=== PATIENT | female | born 1990 | race Caucasian/White ===

== ENCOUNTER 2019-03-27 16:21 | Emergency (ER) | payer OTHER, SELFPAY ==
[2019-03-27 16:21] VITALS: BP 115/79; PULSE 76; RESP 14; TEMP 37.1; O2SAT 97; BMI 20.7
--- NOTE | 2019-03-27 16:53 | ED_ITS ---
HPI - URI/Sore Throat <Driss GuzmánSINDHU graceP - Last Filed: 03/27/19 17:46> General Chief Complaint: Upper Respiratory Symptoms Stated Complaint: thinks she has the flu Time Seen by Provider: 03/27/19 16:30 Source: patient Mode of arrival: Ambulatory Limitations: no limitations History of Present Illness HPI Narrative: This is a 28-year-old female, nonsmoker, who presents to ED with excruciating throat pain since last night. Patient reports it hurts to swallow. Patient is unsure of fever but has mild chills without nausea or vomiting. Patient recently traveled from [facility] via airplane but denies known exposure to illness. Patient also has been having nasal congestion with clear discharge for about 10 days without cough. Patient had not self treated for discomfort at home. Patient is currently on control pill for PCOS and reports no chance for due to low progesterone and is not sexually active at this time since her 's away. Related Data Home Medications Medication Instructions Recorded Confirmed [ CONTROL] #0 04/14/17 mupirocin 1 stevenson TOPICAL TID #0 04/14/17 sulfamethoxazole-trimethoprim 2 tab PO BID #0 04/14/17 Previous Rx's Medication Instructions Recorded cephalexin [Keflex] 500 mg PO Q6H #28 cap 04/14/17 Allergies Allergy/AdvReac Type Severity Reaction Status Date / Time No Known Allergies Allergy Uncoded 07/02/17 12:50 Review of Systems <Driss GuzmánSINDHU graceP - Last Filed: 03/27/19 17:46> Review of Systems Narrative: General: Mild chills. Unsure of fever. Denies fatigue, malaise, sweats. HEENT: Reports severe throat pain since last night and nasal congestion for 10 days. Denies sinus pain, ear pain, difficulty swallowing, dizziness. Respiratory: Denies dyspnea, cough, wheezing, hemoptysis, sputum. Cardiovascular: Denies chest pain, palpitations, orthopnea, edema. Gastrointestinal: Denies nausea, vomiting, abdominal pain, diarrhea, constipa tion, melena. : Denies dysuria, frequency, incontinence, hematuria, urinary retention. Musculoskeletal: Denies weakness, joint pain or bony pain. Skin: Denies rash, skin lesions, or other. Neurologic: Denies weakness, headache, numbness, change in speech, confusion, seizures, incoordination. Psychiatric: No concerning psychosocial issues. 12-point review of systems is negative except for those stated above. Patient History <PEPPER Glaser - Last Filed: 03/27/19 17:46> Surgical History No pertinent past surgical history (Acute) Social History Smoking Status: Never smoker Smoking Status: Never smoker Substance Use Type: does not use Exam <PEPPER Glaser - Last Filed: 03/27/19 17:46> Narrative Exam Narrative: GEN: Alert, oriented x 3, well appearing and nourished, and in no acute distress. Head: Normal cephalic, atraumatic. No scalp or temporal tenderness, palpable mass or rash. EYES: Pupils are equal, round, and reactive to light and accommodation. Extraocular muscles are intact bilaterally. There is no subconjunctival hemorrhage, exudate and sclera non-icteric. ENT: Bilateral auditory canals and tympanic membranes clear. Hearing grossly intact. Nose without bleeding, purulent discharge or deviation. Facial sinuses nontender to palpate. Mucous membrane moist, no mucosal lesion. Throat without erythema, tonsillar hypertrophy or exudate. Uvula in midline and enlarged, airway patent. Neck: Trachea in midline. No JVD, non-tender without lymphadenopathy. No masses or thyroid megaly. Supple, non-tender and no meningeal signs. CARDIAC: Normal regular rate and rhythm without murmurs, gallops, or rubs. No chest wall tenderness. No peripheral edema, cyanosis or pallor. Capillary refill is less than 2 seconds. RESPIRATORY: Lungs are clear to auscultate bilaterally. No cough, wheezes, rales, or rhonchi. No stridor, respiratory distress, increase work of breathing, or accessary muscle used. ABD: Abdomen soft, nontender and non-distended. No guarding or rebound tenderness to palpate. Bowel sounds are normal in all 4 quadrants. There is no palpable masses or organomegaly. EXT: Full painless ROM of all extremities with no loss of sensation, strength, effusion or edema. SKIN: Warm, dry, normal color for patient. No erythema, lesions or rash over visible areas. BACK: Nontender without deformity or crepitance. No flank tenderness. NEUROLOGICAL: Alert and oriented to place, time and person. Sensation and motor function intact bilaterally. No facial droops, dysphasia. PSYCHIATRIC: Good judgement and reason, without hallucinations, abnormal affect or abnormal behaviors during the examination. Initial Vital Signs Initial Vital Signs: Vital Signs Temperature 98.8 F 03/27/19 16:21 Pulse Rate 76 03/27/19 16:21 Respiratory Rate 14 03/27/19 16:21 Blood Pressure 115/79 03/27/19 16:21 Pulse Oximetry 97 03/27/19 16:21 <Digna Kolb DO - Last Filed: 03/27/19 17:49> Initial Vital Signs Initial Vital Signs: Vital Signs Temperature 98.8 F 03/27/19 16:21 Pulse Rate 76 03/27/19 16:21 Respiratory Rate 14 03/27/19 16:21 Blood Pressure 115/79 03/27/19 16:21 Pulse Oximetry 97 03/27/19 16:21 Scores <PEPPER Glaser - Last Filed: 03/27/19 17:46> GCS Nordland coma scale eye opening: Spontaneous Nord[place] coma scale verbal response: Orientated [place] coma scale motor response: Obey commands Ashvin coma scale total score: 15 Citation: Centor score for strep 1 for abscent cough. Course <PEPPER Glaser - Last Filed: 03/27/19 17:46> Orders Ordered: ED Orders 03/27/19 16:40 Throat Culture Stat Discontinued Medications Acetaminophen (Tylenol) 975 mg PO NOW ONE Stop: 03/27/19 16:52 Last Admin: 03/27/19 17:19 Dose: 975 mg Documented by: FRANC Dexamethasone (Decadron) 10 mg PO NOW ONE Stop: 03/27/19 16:52 Last Admin: 03/27/19 17:20 Dose: 10 mg Documented by: FRANC Ibuprofen (Advil) 400 mg PO NOW ONE Stop: 03/27/19 16:52 Last Admin: 03/27/19 17:19 Dose: 400 mg Documented by: FRANC Vital Signs Vital signs: Vital Signs - 8 hr 03/27/19 16:21 03/27/19 17:31 Temperature 98.8 F Pulse Rate 76 88 Respiratory Rate 14 14 Blood Pressure 115/79 Blood Pressure [Right Arm] 103/68 Pulse Oximetry 97 98 <Digna Kolb DO - Last Filed: 03/27/19 17:49> Orders Ordered: ED Orders 03/27/19 16:40 Throat Culture Stat Discontinued Medications Acetaminophen (Tylenol) 975 mg PO NOW ONE Stop: 03/27/19 16:52 Last Admin: 03/27/19 17:19 Dose: 975 mg Documented by: FRANC Dexamethasone (Decadron) 10 mg PO NOW ONE Stop: 03/27/19 16:52 Last Admin: 03/27/19 17:20 Dose: 10 mg Documented by: FRANC Ibuprofen (Advil) 400 mg PO NOW ONE Stop: 03/27/19 16:52 Last Admin: 03/27/19 17:19 Dose: 400 mg Documented by: FRANC Vital Signs Vital signs: Vital Signs - 8 hr 03/27/19 16:21 03/27/19 17:31 Temperature 98.8 F Pulse Rate 76 88 Respiratory Rate 14 14 Blood Pressure 115/79 Blood Pressure [Right Arm] 103/68 Pulse Oximetry 97 98 MDM - URI/Sore Throat <PEPPER Glaser - Last Filed: 03/27/19 17:46> Differential Diagnosis Differential diagnosis: Likely upper respiratory infection and pharyngitis Medical Records Attestation: I reviewed the patient's medical records. Lab Data Attestation: I reviewed the patient's lab results. Labs: Point of Care Testing Rapid Strep A Negative MDM Narrative Medical decision making narrative: This is a 28-year-old female who presents to ED with severe sore throat since last night without fever but mild chills. Physical exam is not consistent with strep throat. Centor score for strep pharyngitis was 1. POC strep swab was negative. Formal strep throat culture is pending. However, overlies mildly swollen without overt erythema. Patient was medicated with [id number] Tylenol, ibuprofen and dexamethasone 10 mg for discomfort. We discussed return precautions and instructed to monitor for high fever, breathing difficulty, muffled voice, unable to hydrate herself or manage her oral secretion adequately after the pain management. Patient verbalized the understanding and agrees with the treatment plan. <Digna Kolb DO - Last Filed: 03/27/19 17:49> Lab Data Labs: Point of Care Testing Rapid Strep A Negative Discharge Plan Departure Patient Disposition: Home Clinical Impression: Pharyngitis, acute Qualifiers: Pharyngitis/tonsillitis etiology: unspecified etiology Qualified Code(s): J02.9 - Acute pharyngitis, unspecified Instructions: DI for Viral Pharyngitis Activity Restrictions/Additional Instructions: You have been diagnosed with [viral pharyngitis. POC strep swab was negative today. Formal throat culture is pending and you'll get a phone call if you need a treatment with an antibiotic medication.]. What to do: *Take your medications as directed. Please take [id number] Tylenol and or Motrin as needed for discomfort and fever. Warm salt water gargle would help with discomfort. You were treated with dexamethasone, steroids, for discomfort while in ED. *Follow up with your primary care provider in 2-3 days, call for an appointment. Let them know you were seen in the ED and that we asked you to be seen in follow up. *Return to ED if you have any new, worsening, or concerning symptoms, such as [significant pain and swelling to throat, fever, unable to tolerate fluids, muffled voice, unable to manage her own secretions, symptoms lasting longer than expected or any acute concerns]. Prescriptions: No Action sulfamethoxazole-trimethoprim 800 MG/160 MG tablet 2 tab PO BID Qty: 0 RF: 0 mupirocin 2 % ointment 1 stevenson Topical TID Qty: 0 RF: 0 [ CONTROL] Qty: 0 RF: 0 cephalexin [Keflex] 500 MG capsule 500 mg PO Q6H Qty: 28 RF: 0 Referrals: [facility] [Outside]
[2019-03-27] MEDS: IBUPROFEN 400 MG TABLET PO (17:19)
[2019-03-27] MEDS: ACETAMINOPHEN 325 MG TABLET 975 MG PO (17:19)
[2019-03-27] MEDS: DEXAMETHASONE 10 MG/ML VIAL PO (17:20)
[2019-03-27 17:31] VITALS: BP 103/68; PULSE 88; RESP 14; O2SAT 98
== END 2019-03-27 17:51 | disposition home or self-care (01) ==
PROVIDERS: Emergency Provider Nurse Practitioner Family
DX: J02.9 Acute pharyngitis, unspecified (principal)
CPT/HCPCS: 87070; 87880; 99283; J1100